=== PATIENT | female | born 1990 | race Caucasian/White ===

== ENCOUNTER 2024-04-17 10:31 | Emergency (ER) | payer OTHER, MEDICAID, SELFPAY ==
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
--- NOTE | ~2024-04-17 | XR_ITS ---
Left Knee Technique: AP, lateral, and oblique views were obtained. Clinical History: Pain Findings: No fracture or dislocation is seen. Osseous alignment is anatomic. Joint spaces are preserv ed without degenerative or erosive change. Soft tissues are unremarkable. No joint effusion is seen. Impression: Unremarkable left knee radiographs. Reviewed, dictated and finalized at location . Impression: Unremarkable left knee radiographs.
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
--- NOTE | ~2024-04-17 | XR_ITS ---
Left Shoulder Technique: AP and scapular Y views were obtained. Clinical History: Pain Findings: No fracture or dislocation is seen. Osseous alignment is anatomic. The glenohumeral and acr omioclavicular joint spaces are preserved. Soft tissues are unremarkable. Impression: Unremarkable left shoulder radiographs. Reviewed, dictated and finalized at [facility]. Impression: Unremarkable left shoulder radiographs.
[2024-04-17 10:32] VITALS: BP 124/80; PULSE 77; RESP 16; TEMP 36.6; O2SAT 100
[2024-04-17 11:29] LABS: BEDSIDEPREGUCG Negative (Negative)
[2024-04-17 11:44] VITALS: BP 130/74; PULSE 80; RESP 14; O2SAT 100
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
[2024-04-17 13:59] VITALS: BP 126/78; PULSE 74; RESP 16; TEMP 36.9; O2SAT 98
== END 2024-04-17 14:02 | disposition home or self-care (01) ==
PROVIDERS: Emergency Provider Physician Assistant
DX: S16.1XXA Strain of muscle, fascia and tendon at neck level, initial encounter (principal); S49.92XA Unspecified injury of left shoulder and upper arm, initial encounter; S89.92XA Unspecified injury of left lower leg, initial encounter; V49.40XA Driver injured in collision with unspecified motor vehicles in traffic accident, initial encounter
CPT/HCPCS: 70450; 72125; 73030; 73564; 81025; 99284